=== PATIENT | female | born 1940 | race Caucasian/White ===

== ENCOUNTER → 2019-03-01 | Outpatient (CLI) | payer MEDICARE, BC ==
[2014-09-06 09:10] VITALS: BP 132/90
[~2019-03-01] MED LIST: PRAV20TA2 PO; TRIA1CAP3 PO
--- NOTE | 2019-03-02 08:49 | RAD ---
DATE: 03/01/2019 EXAM: MAMMO IKE SCREENING BILATERAL HISTORY: Previous right breast cancer COMPARISON: 10/02/2013 This study was interpreted with the benefit of Computerized Aided Detection (CAD). Breast Density: HETERO The breast parenchyma is heterogenously dense, which could reduce sensitivity of mammography. Breast parenchyma level C. FINDINGS: 2-D and 3-D tomosynthesis imaging was performed in CC and MLO projections. The breasts are heterogeneously dense in a multinodular pattern. No new or enlarging breast densities are seen. There are 2 clusters of coarse calcifications in the right breast likely related to fibroadenomas. The more lateral cluster of calcifications has increased. A tight cluster of smooth microcalcifications in the superolateral aspect of the left breast has progressed slightly. These calcifications have a benign appearance. There are a few other scattered benign type calcifications in both breasts. IMPRESSION: There is no mammographic evidence of malignancy in either breast. BI-RADS CATEGORY: 2 BENIGN FINDING(S) RECOMMENDED FOLLOW-UP: 12M 12 MONTH FOLLOW-UP PQRS compliance statement: Patient information was entered into a reminder system with a target due date for the next mammogram. Mammography is a sensitive method for finding small breast cancers, but it does not detect them all and is not a substitute for careful clinical examination. A negative mammogram does not negate a clinically suspicious finding and should not result in delay in biopsying a clinically suspicious abnormality. "Our facility is accredited by the [employer] Mammography Program."
== END | disposition home or self-care (01) ==
LOC: EDBD 13:04 → MAMMO 13:04
PROVIDERS: ATTEND Family Medicine
DX: Z12.31 Encounter for screening mammogram for malignant neoplasm of breast (principal); N64.89 Other specified disorders of breast
CPT/HCPCS: 77063; 77067